=== PATIENT | female | born 1990 | race Caucasian/White ===

== ENCOUNTER → 2021-01-03 | Outpatient (REF) | payer OTHER ==
[2021-01-03 14:34] LABS: APPEARANCE, URINE HAZY (CLEAR); BACTERIA, URINE AUTO NEGATIVE (NEGATIVE); BILIRUBIN, URINE AUTO NEGATIVE (NEGATIVE); BLOOD, URINE BLOOD NEGATIVE (NEGATIVE); COLOR, URINE YELLOW (YELLOW); GLUCOSE, URINE (UA) AUTO NEGATIVE (NEGATIVE); KETONE, URINE AUTO NEGATIVE (NEGATIVE); LEUKOCYTE ESTERASE, URINE AUTO NEGATIVE (NEGATIVE); MUCUS, URINE SMALL (NEGATIVE); NITRITE, URINE AUTO NEGATIVE (NEGATIVE); PROTEIN, URINE AUTO NEGATIVE (NEGATIVE); RBC, URINE AUTO 0 /HPF (0-3); SQUAMOUS EPITHELIAL CELL UR AU 5 /HPF (0-6); UROBILINOGEN, URINE AUTO 0.2 mg/dL (0.0-2.0); WBC, URINE AUTO 1 /HPF (0-3)
== END ==
LOC: M LAB REF 14:14
PROVIDERS: ATTEND Physician Assistant
DX: N39.0 Urinary tract infection, site not specified (principal)

== ENCOUNTER 2023-08-01 12:02 | Emergency (ER) | payer OTHER ==
[~2023-08-01] VITALS: Ht 182.9 cm; Wt 87.9 kg
[2023-08-01] MEDS ORDERED: AMOX875T2 (12:15)
[2023-08-01] MEDS ORDERED: ZOLO100T (12:15)
[2023-08-01] MEDS ORDERED: SERT25TA21 PO (12:15)
[2023-08-01] MEDS ORDERED: IBUP1TAB7 PO (12:15)
[2023-08-01 15:41] VITALS: BP 150/86; TEMP 98.2; O2SAT 98
[2023-08-03] MEDS ORDERED: TRAN650T PO (13:01)
[2023-08-03] MEDS ORDERED: CYCL5TAB PO (14:05)
[2023-08-03] MEDS ORDERED: ZOLO100T PO (14:05)
== END 2023-08-01 15:44 | disposition home or self-care (01) ==
LOC: M ED 12:02
DX: S93.402A Sprain of unspecified ligament of left ankle, initial encounter (principal); X50.0XXA Overexertion from strenuous movement or load, initial encounter; G40.909 Epilepsy, unspecified, not intractable, without status epilepticus; Z86.73 Personal history of transient ischemic attack (TIA), and cerebral infarction without residual deficits; Y92.9 Unspecified place or not applicable; Y93.9 Activity, unspecified; Y99.9 Unspecified external cause status; Z79.01 Long term (current) use of anticoagulants; Z79.899 Other long term (current) drug therapy

== ENCOUNTER 2023-08-10 11:21 | Day surgery (SDC) | payer OTHER ==
[~2023-08-10] VITALS: Ht 182.9 cm; Wt 88.5 kg
[~2023-08-10 11:21] MED LIST: AMOX875T2; CYCL5TAB PO; IBUP1TAB7 PO; SERT25TA21 PO; TRAN650T PO; ZOLO100T; ZOLO100T PO
[2023-08-10 12:07] LABS: HEMATOCRIT 35.5 % (36.0-47.0); HEMOGLOBIN 11.9 g/dl (12.0-15.5)
[2023-08-10] MEDS: LR 1,000 ML IV SCH (12:11)
[2023-08-10] MEDS ORDERED: KETOROLAC 60MG 2ML VIAL As Ordered ONE (12:44)
[2023-08-10] MEDS ORDERED: ROCURONIUM BROMIDE 50MG/5ML VIAL As Ordered ONE (12:44)
[2023-08-10] MEDS ORDERED: ACETAMINOPHEN 1000MG 100ML IV BAG As Ordered ONE (12:44)
[2023-08-10] MEDS ORDERED: propofoL 200 MG/20 ML VIAL As Ordered ONE (12:44)
[2023-08-10] MEDS ORDERED: LIDOCAINE 2% 100MG/5ML SDV (FOR ANES.) As Ordered ONE (12:44)
[2023-08-10] MEDS ORDERED: ONDANSETRON 4MG 2ML VIAL As Ordered ONE (12:44)
[2023-08-10] MEDS ORDERED: SUGAMMADEX SODIUM 500 MG/5 ML VIAL (BRIDION) As Ordered ONE (12:44)
[2023-08-10] MEDS ORDERED: MIDAZOLAM INJ 2MG/2ML VIAL As Ordered ONE (12:44)
[2023-08-10] MEDS ORDERED: fentaNYL 100 MCG/2 ML INJECTION As Ordered ONE (12:45)
[2023-08-10] MEDS ORDERED: SCOPOLAMINE 1MG TRANSDERMAL PATCH As Ordered ONE (14:46)
[2023-08-10] MEDS: LIDOCAINE 1% SDV 30ML VIAL As Ordered ONE (14:49)
[2023-08-10] MEDS: LIDOCAINE W/EPINEPHRINE 1% 20ML VIAL As Ordered ONE (14:50)
[2023-08-10] MEDS ORDERED: ePHEDrine SULFATE 25 MG/5 ML(5MG/ML) SYRINGE As Ordered ONE (15:33)
[2023-08-10] MEDS ORDERED: ONDANSETRON 4MG 2ML VIAL IV PRN (16:15)
[2023-08-10] MEDS: fentaNYL 100 MCG/2 ML INJECTION IV PRN (16:22)
[2023-08-10] MEDS: MORPHINE 2 MG/ML 1ML VIAL IV PRN (16:29)
[2023-08-10] MEDS ORDERED: oxyCODONE 5MG TAB PO PRN (16:30)
[2023-08-10] MEDS: oxyCODONE 5MG TAB PO PRN (16:30)
[2023-08-10 16:58] VITALS: BP 131/63; TEMP 97.9; O2SAT 100
== END 2023-08-10 17:04 | disposition home or self-care (01) ==
LOC: M SDC 11:21
PROVIDERS: ATTEND Obstetrics & Gynecology
DX: D06.9 Carcinoma in situ of cervix, unspecified (principal)
CPT/HCPCS: 36415; 57460; 58558; 81025; 85014; 85018; 88305; 88307; J0131; J1100; J1885; J2250; J2405; J3010